=== PATIENT | female | born 1940 | race Caucasian/White ===

== ENCOUNTER 2016-07-20 12:49 | Outpatient (CLI) | payer OTHER, MEDICARE ==
--- NOTE | 2016-07-20 16:37 | DIAGNOSTIC IMAGING REPORT ---
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 COMPARISON: Thoracic spine MRI 07/13/2016 FINDINGS: THORAX: New small left lower lobe consolidation. Mild bilateral upper lobe scarring. Prominent anterior mediastinal lymph nodes (of 1.1 cm short axis). No effusion. Sternotomy and CABG. Normal heart size. Moderate degenerative changes of the spine. Stable 25% T3 superior endplate compression fracture. ABDOMEN: Cholecystectomy. 1.8 cm hypodense liver lesion adjacent to the falciform ligament, likely focal fatty infiltration. Pancreatic atrophy. Spleen and adrenal glands are normal. Bilateral renal cysts, largest on the left 8 cm. Moderate atherosclerosis of the aorta . Nonspecific bowel gas pattern. Moderate L3 compression fracture which appears old. IMPRESSION: 1. New small left basilar consolidation which may represent pneumonia, atelectasis or infarct 2. Prominent anterior several lymph nodes, likely inflammatory 3. CABG 4. Cholecystectomy 5. Bilateral renal cysts 6. Moderate degenerative changes of the spine with old T3 and L3 compression fractures 7. Result discussed with Dr. Aldridge All CT scans at this facility use dose modulation, iterative reconstruction, and/or weight-based dosing when appropriate to reduce radiation dose to as low as reasonably achievable.
[2016-07-22] MEDS ORDERED: ASPIRIN ADULT L81 M1 PO (11:42)
[2016-07-22] MEDS ORDERED: LEVOTHYROXINE50 MCG PO (11:44)
[2016-07-22] MEDS ORDERED: PLAVIX75 MG PO ×2 (13:06→13:07)
[2016-07-22] MEDS ORDERED: LANTUS SOL100 UNITS/ SC (13:22)
[2016-07-22] MEDS ORDERED: PRAVASTATIN SOD20 MG PO (13:24)
[2016-07-22] MEDS ORDERED: PROPRANOLOL HCL40 MG PO (13:24)
[2016-07-22] MEDS ORDERED: SELENIUM50 MCG PO (13:25)
[2016-07-22] MEDS ORDERED: TAMSULOSIN HCL0.4 MG PO (13:31)
[2016-07-22] MEDS ORDERED: TEMAZEPAM15 MG PO (13:32)
[2016-07-22] MEDS ORDERED: MAXZIDE-25 PO (13:33)
[2016-07-22] MEDS ORDERED: VENLAFAXINE HCL75 M1 PO (13:33)
[2016-07-22] MEDS ORDERED: [UNRECOGNIZED DRUG - OTHER] PO (13:37)
[2016-07-22] MEDS ORDERED: NORCO1 TA1 PO (14:28)
[2016-07-22] MEDS ORDERED: PHENERGAN EQUIV25 M1 PR (14:30)
== END 2016-07-20 23:00 ==
LOC: CT SRH 12:49
DX: S32.030S Wedge compression fracture of third lumbar vertebra, sequela (principal); S22.030S Wedge compression fracture of third thoracic vertebra, sequela

== ENCOUNTER 2016-07-25 08:44 | Day surgery (SDC) | payer OTHER, MEDICARE ==
[~2016-07-25 08:44] MED LIST: ASPIRIN ADULT L81 M1 PO; LANTUS SOL100 UNITS/ SC; LEVOTHYROXINE50 MCG PO; MAXZIDE-25 PO; NORCO1 TA1 PO; PHENERGAN EQUIV25 M1 PR; PLAVIX75 MG PO; PRAVASTATIN SOD20 MG PO; PROPRANOLOL HCL40 MG PO; SELENIUM50 MCG PO; TAMSULOSIN HCL0.4 MG PO; TEMAZEPAM15 MG PO; VENLAFAXINE HCL75 M1 PO; [UNRECOGNIZED DRUG - OTHER] PO
--- NOTE | 2016-07-25 10:13 | Provider's Discharge Care Plan ---
Problem, Goal, Plan Problem List 1. S/P EGD Goals: Screening Instructions: Follow up as directed, Take meds as directed
--- NOTE | 2016-07-25 10:13 | Provider's Discharge Care Plan ---
Problem, Goal, Plan Problem List 1. S/P EGD Goals: Screening Instructions: Follow up as directed, Take meds as directed
--- NOTE | 2016-07-25 11:42 | OPERATIVE REPORT ---
DATE OF SURGERY: 07/25/2016 SURGEON: Skylar Leung III, MD PREOPERATIVE DIAGNOSIS: 1. Pain, right upper quadrant POSTOPERATIVE DIAGNOSIS: 1. Normal upper gastrointestinal endoscopy PROCEDURE PERFORMED: 1. Upper gastrointestinal endoscopy with random gastric and distal esophageal mucosal biopsies INDICATIONS: The patient is a 75-year-old female with severe right upper quadrant abdominal pain, feels as if there is a lump underneath her ribs. Since our office visit, she has undergone a CAT scan of her chest and abdomen, which shows no demonstrable masses within the abdomen or as a source for this pain; however, she does have right lower lobe consolidation consistent with pneumonia versus infarct. The patient denies any shortness of breath, and today the patient states that this is the first time she has not had any pain whatsoever. SURGICAL FINDINGS: Normal-appearing duodenum and duodenal bulb. The gastric mucosal pattern appeared grossly normal. The EG junction was approximately 40 cm from the dental incisors. The esophagus appeared grossly normal as well. SURGICAL TECHNIQUE: The patient was brought to the operating room and placed in the left lateral decubitus position, where she was administered TIVA and monitored closely by anesthesia. After proper anesthesia had taken effect, the posterior pharynx was sprayed with Cetacaine spray, after which an Olympus fiberoptic video flexible upper GI endoscope was passed down the patient's posterior pharynx. The esophagus intubated under direct visualization. The scope passed easily down the esophagus, through the EG junction, which was approximately 40 cm from dental incisors, into the gastric lumen and eventually into the second and third portion of the duodenum. On withdrawing the scope, the aforementioned findings were noted. The scope was withdrawn into the gastric lumen where it was retroflexed, with a good view of the cardia, fundus, and EG junction from below, as well as the greater and lesser curvature. Multiple random biopsies were obtained of the gastric mucosa to rule out H. pylori. The scope was withdrawn through the distal esophagus, where multiple biopsies were obtained to rule out occult Aguirre's. The scope was completely withdrawn. The patient tolerated the procedure well and was transferred to the recovery room in stable condition. There were no intraoperative or anesthetic complications.
== END 2016-07-25 11:57 | disposition home or self-care (01) ==
LOC: OR SRH 08:44 → SCU SRH 08:50
PROVIDERS: Specialist
PROC: 0DB68ZX Excision of Stomach, Via Natural or Artificial Opening Endoscopic, Diagnostic (ICD-10-PCS; principal; 2016-07-25 11:00)
PROC: 0DB38ZX Excision of Lower Esophagus, Via Natural or Artificial Opening Endoscopic, Diagnostic (ICD-10-PCS; principal; 2016-07-25 11:00)
DX: R10.11 Right upper quadrant pain (principal); K29.50 Unspecified chronic gastritis without bleeding; E11.9 Type 2 diabetes mellitus without complications; Z79.4 Long term (current) use of insulin; I10 Essential (primary) hypertension
CPT/HCPCS: 29229; 29240; 50004; 60001; 82943; 83526; 90047; 90074; 90705; 94060; 95059